=== PATIENT | female | born 1930 | race African-American/Black ===

== ENCOUNTER 2018-10-22 22:47 | Inpatient (IN) | payer BC, MEDICAID ==
[~2018-10-22] VITALS: Ht 160 cm; Wt 41.5 kg
[~2018-10-22 22:47] MED LIST: ASCO-339 PO; CEFT600V IV; MULT-1146 PO
[2018-10-23 00:12] LABS: EOSINOPHILS % 3.6 % (0.0-5.0); HEMATOCRIT. 37.8 % (36.0-48.0); HEMOGLOBIN. 11.9 g/dL (12.0-16.0); LYMPHOCYTES % 22.1 % (20.0-50.0); MEAN CORPUSCULAR HEMOGLOBIN 21.7 pg (28.0-32.0); MEAN CORPUSCULAR VOLUME 68.7 fL (81.0-99.0); MEAN PLATELET VOLUME 10.1 fl (7.4-10.4); MONOCYTES % 9.8 % (2.0-8.0); NEUTROPHILS % 63.5 % (40.0-76.0); PLATELET 231 x1000/uL (130-400); RED BLOOD CELL COUNT 5.49 mill/uL (4.2-5.4); RED CELL DISTRIBUTION WIDTH 18.7 % (11.6-14.6)
[2018-10-23 00:17] LABS: CHLORIDE 109 mEq/L (98-107)
[2018-10-23 00:51] LABS: PLATELET ESTIMATE NORMAL
[2018-10-23 04:08] VITALS: BP 140/85
[2018-10-23] MEDS ORDERED: ACET160S PO (05:46)
[2018-10-23] MEDS ORDERED: IPRA3AMP31 IH (05:47)
[2018-10-23] MEDS ORDERED: METO-539 PO (05:49)
[2018-10-23] MEDS ORDERED: PROM6.254 PO (05:51)
[2018-10-23] MEDS ORDERED: TRAM50TA3 PO (05:52)
[2018-10-23] MEDS ORDERED: ACET-2178 PO (05:54)
[2018-10-23] MEDS ORDERED: PROMETHAZINE HCL 6.25 MG/5 ML 118ML PO SCH (06:15)
[2018-10-23] MEDS ORDERED: MEDICATION NOT ON FORMULARY EA (Acetaminophen (Tylenol) 2 TAB) PO SCH (06:15)
[2018-10-23] MEDS ORDERED: GUAIFENESIN 200MG/10ML SUGAR FREE UDC PO PRN (06:30)
[2018-10-23] MEDS ORDERED: TRAMADOL 50MG TABLET PO PRN (06:30)
[2018-10-23] MEDS ORDERED: ACETAMINOPHEN 325MG TABLET PO PRN (06:30)
[2018-10-23 08:00] VITALS: BP 138/77
[2018-10-23] MEDS ORDERED: ENOXAPARIN 40MG/0.4ML SYR SUBCUT SCH (09:00)
[2018-10-23] MEDS: METOPROLOL TARTRATE 50MG TABLET PO SCH (09:35)
[2018-10-23] MEDS: ASCORBIC ACID 500 MG TABLET PO SCH (09:35)
[2018-10-23] MEDS: MULTIVITAMINS,THER W-MINERALS TABLET PO SCH (09:35)
[2018-10-23] MEDS ORDERED: SODIUM POLYSTYRENE SULFONATE 15 G/60 ML BOT PO NR ×2 (11:30→12:00)
[2018-10-23 12:00] VITALS: BP 122/81
[2018-10-23] MEDS ORDERED: MAGNESIUM/ALUMINUM HYDROXIDE/SIMETHICONE 30ML UDC PO PRN (14:30)
[2018-10-23] MEDS: IPRATROPIUM/ALBUTEROL 0.5-3(2.5)MG/3ML NEB HHN SCH ×2 (14:30→21:36)
[2018-10-23 16:00] VITALS: BP 112/68
[2018-10-23 20:00] VITALS: BP 127/77
[2018-10-24] VITALS (7 sets, daily range): BP systolic 116–150; BP diastolic 71–99
[2018-10-24] MEDS: IPRATROPIUM/ALBUTEROL 0.5-3(2.5)MG/3ML NEB HHN SCH ×4 (00:50→16:00)
[2018-10-24 03:29] LABS: CLARITY URINE CLEAR (CLEAR); COLOR URINE YELLOW (YELLOW); KETONES URINE TRACE (NEGATIVE); OCCULT BLOOD URINE NEGATIVE (NEGATIVE); PH URINE 6.5 (4.5-8.0); PROTEIN URINE NEGATIVE (NEGATIVE)
[2018-10-24 03:30] LABS: LEUKOCYTE ESTERASE URINE NEGATIVE (NEGATIVE); NITRITE URINE NEGATIVE (NEGATIVE)
[2018-10-24 06:33] LABS: BASOPHILS % 0.6 % (0.0-2.0); EOSINOPHILS % 1.5 % (0.0-5.0); HEMATOCRIT. 38.1 % (36.0-48.0); LYMPHOCYTES % 13.2 % (20.0-50.0); MEAN CORPUSCULAR HEMOGLOBIN 21.6 pg (28.0-32.0); MEAN CORPUSCULAR VOLUME 68.8 fL (81.0-99.0); MEAN PLATELET VOLUME 10.5 fl (7.4-10.4); MONOCYTES % 7.5 % (2.0-8.0); NEUTROPHILS % 77.2 % (40.0-76.0); RED BLOOD CELL COUNT 5.55 mill/uL (4.2-5.4); RED CELL DISTRIBUTION WIDTH 18.5 % (11.6-14.6)
[2018-10-24 06:34] LABS: PLATELET 222 x1000/uL (130-400)
[2018-10-24] MEDS: OMEPRAZOLE 20MG CAPSULE EXTENDED RELEASE PO SCH ×2 (06:35→08:18)
[2018-10-24 06:44] LABS: CHLORIDE 109 mEq/L (98-107)
[2018-10-24 06:50] LABS: INR 1.1; PROTHROMBIN TIME 11.3 sec (9.6-11.0)
[2018-10-24 06:55] LABS: PHOSPHORUS 2.7 mg/dL (2.5-4.9)
[2018-10-24] MEDS: ASCORBIC ACID 500 MG TABLET PO SCH (08:53)
[2018-10-24] MEDS: MULTIVITAMINS,THER W-MINERALS TABLET PO SCH (08:53)
[2018-10-24] MEDS: METOPROLOL TARTRATE 50MG TABLET PO SCH (08:54)
[2018-10-24] MEDS ORDERED: ENOXAPARIN 40MG/0.4ML SYR SUBCUT SCH (09:00)
[2018-10-24] MEDS ORDERED: POTASSIUM CHLORIDE 20MEQ/PACKET PO NR (13:00)
== END 2018-10-24 20:55 | DRG 594 ==
LOC: ER 22:47 → 6WST 10-23 00:43 → EDBEDREQTM 10-23 00:47 → EDBEDREQ 10-23 00:47 → EDBEDREQDT 10-23 00:47 → ENRESERV 10-23 02:35 → 6WST 10-23 04:45
PROVIDERS: ADMIT Specialist; ATTEND Specialist
DX: L97.519 Non-pressure chronic ulcer of other part of right foot with unspecified severity (principal); D64.9 Anemia, unspecified; E78.00 Pure hypercholesterolemia, unspecified; E87.5 Hyperkalemia; E87.6 Hypokalemia; F03.90 Unspecified dementia, unspecified severity, without behavioral disturbance, psychotic disturbance, mood disturbance, and anxiety; I10 Essential (primary) hypertension; I73.9 Peripheral vascular disease, unspecified; J44.9 Chronic obstructive pulmonary disease, unspecified; L97.529 Non-pressure chronic ulcer of other part of left foot with unspecified severity; Z74.01 Bed confinement status; Z87.01 Personal history of pneumonia (recurrent); Z87.891 Personal history of nicotine dependence; Z79.1 Long term (current) use of non-steroidal anti-inflammatories (NSAID); Z79.899 Other long term (current) drug therapy
CPT/HCPCS: 36415; 71045; 80048; 83735; 84100; 84443; 93005; 93970; 99285; A6261; J1650; J7620